=== PATIENT | male | born 1960 | race Caucasian/White ===

== ENCOUNTER 2019-10-06 11:55 | Emergency (ER) | payer OTHER ==
--- NOTE | 2019-10-06 12:03 | EDM.PDOC ---
ED HPI GENERAL MEDICAL PROBLEM - General Chief Complaint: Trauma Stated Complaint: FELL, HURT RIGHTSIDE RIB Time Seen by Provider: 10/06/19 12:01 Source of Information: Reports: Patient - History of Present Illness INITIAL COMMENTS - FREE TEXT/NARRATIVE: HISTORY AND PHYSICAL: History of present illness: [Had fall on ice yesterday to his right side no head injury or loss of consciousness complains of right shoulder rib and hip pain today 5 out of 10 nonradiating no fever nausea vomiting chills sweats no chest pain shortness breath headache dizziness palpitation no bowel or urine symptoms] Review of systems: As per history of present illness and below otherwise all systems reviewed and negative. Past medical history: As per history of present illness and as reviewed below otherwise noncontributory. Surgical history: As per history of present illness and as reviewed below otherwise noncontributory. Social history: No reported history of drug or alcohol abuse. Family history: As per history of present illness and as reviewed below otherwise noncontributory. Physical exam: HEENT: Atraumatic, normocephalic, pupils reactive, negative for conjunctival pallor or scleral icterus, mucous membranes moist, throat clear, neck supple, nontender, trachea midline. Lungs: Clear to auscultation, breath sounds equal bilaterally, chest nontender on left, exquisitly tender on lower rib margins on right. Heart: S1S2, regular, negative for clicks, rubs, or JVD. Abdomen: Soft, nondistended, nontender. Negative for masses or hepatosplenomegaly. Negative for costovertebral tenderness. Pelvis: Stable nontender. Genitourinary: Deferred. Rectal: Deferred. Extremities: Atraumatic, negative for cords or calf pain. Neurovascular unremarkable. right hip pain with movement appears to ne muscle spasm contusion , no bruise or deformity neurovascular intact right shoulder no pain with head movement , limited exam due to pain, spe cificaly passive fwd ext, neurovascularly intact, no bruise or open lesion Neuro: Awake, alert, oriented. Cranial nerves II through XII unremarkable. Cerebellum unremarkable. Motor and sensory unremarkable throughout. Exam nonfocal. Diagnostics: [pelvis w right hip right shoulder 3v chest w right ribs] Therapeutics: [norco rest ice ibu sling for comfort] Impression: [fall shoulder pain Right rib pain right/clinically could represent non displaced fx right hip pain ] Definitive disposition and diagnosis as appropriate pending reevaluation and review of above. Right Generalized Pain Score (Numeric/FACES): 8 - Related Data Allergies Allergy/AdvReac Type Severity Reaction Status Date / Time No Known Allergies Allergy Verified 10/06/19 12:26 Home Meds: Home Meds Budesonide/Formoterol Fumarate [Symbicort 160-4.5 Mcg Inhaler] 6 gm IH ASDIRECTED 10/06/19 [History] Clopidogrel [Plavix] 75 mg PO ASDIRECTED 10/06/19 [History] Dicyclomine HCl [Bentyl] 10 mg PO ASDIRECTED 10/06/19 [History] Esomeprazole Magnesium [Nexium] 40 mg PO ASDIRECTED 10/06/19 [History] Fenofibrate Nanocrystallized [Fenofibrate] 145 mg PO ASDIRECTED 10/06/19 [ History] Hydrocodone/Acetaminophen [Hydrocodon-Acetaminophen 5-325] 1 each PO ASDIRECTED 10/06/19 [History] Metoprolol Succinate/HCTZ [Metoprolol ER-Hctz 100-12.5 mg] 1 each PO ASDIRECTED 10/06/19 [History] Ondansetron [Zofran ODT] 4 mg PO Q6H PRN 10/06/19 [History] Ranolazine [Ranolazine ER] 1,000 mg PO ASDIRECTED 10/06/19 [History] Rosuvastatin [Crestor] 20 mg PO DAILY 10/06/19 [History] lisinopriL [Lisinopril] 20 mg PO ASDIRECTED 10/06/19 [History] traMADol [Ultram] 50 mg PO Q6H PRN 10/06/19 [History] Review of Systems - Review of Systems Review Of Systems: See Below ED EXAM, GENERAL - Physical Exam Exam: See Below Course - Vital Signs Last Recorded V/S: Last Vital Signs Temp 96.7 F 10/06/19 12:00 Pulse 74 10/06/19 12:00 Resp 16 10/06/19 12:00 BP 168/99 H 10/06/19 12:00 Pulse Ox 99 10/06/19 12:00 Departure - Departure Time of Disposition: 13:13 Disposition: Home, Self-Care 01 Condition: Good Clinical Impression: Chest wall pain, Right hip pain, Right shoulder pain - Discharge Information Forms: ED Department Discharge Additional Instructions: medication as prescribed return if persist or worsen follow up with primary care on return home for further restriction or work release ice 20min interval 3 times daily as needed The following information is given to patients seen in the emergency department who are being discharged to home. This information is to outline your options for follow-up care. We provide all patients seen in our emergency department with a follow-up referral. The need for follow-up, as well as the timing and circumstances, are variable depending upon the specifics of your emergency department visit. If you don't have a primary care physician on staff, we will provide you with a referral. We always advise you to contact your personal physician following an emergency department visit to inform them of the circumstance of the visit and for follow-up with them and/or the need for any referrals to a consulting specialist. The emergency department will also refer you to a specialist when appropriate. This referral assures that you have the opportunity for follow-up care with a specialist. All of these measure are taken in an effort to provide you with optimal care, which includes your follow-up. Under all circumstances we always encourage you to contact your private physician who remains a resource for coordinating your care. When calling for follow-up care, please make the office aware that this follow-up is from your recent emergency room visit. If for any reason you are refused follow-up, please contact the [facility] emergency department at and asked to speak to the emergency department charge nurse. Sepsis Event Note - Focused Exam Vital Signs: Vital Signs Temp Pulse Resp BP Pulse Ox 10/06/19 12:00 96.7 F 74 16 168/99 H 99 Date Exam was Performed: 10/06/19 Time Exam was Performed: 13:11
--- NOTE | 2019-10-06 12:46 | CR ---
Chest and right ribs: Frontal view of the chest was obtained as well as 4 views the right ribs. Comparison: No previous study. Heart size and mediastinum are normal. No acute parenchymal change is seen. No discrete fracture or other right-sided rib abnormality is seen. Impression: 1. Nothing acute is seen on frontal chest x-ray. No discrete right-sided rib abnormality is appreciated. 2. Nondisplaced rib fracture could easily be missed. Diagnostic code #1 This report was dictated in [place] Standard Time
--- NOTE | 2019-10-06 12:46 | CR ---
Pelvis and right hip: AP view of the pelvis was obtained as well as AP view of the right hip and frog-leg lateral view of the right hip. Joint space narrowing is seen within both hips, worse on the right side. Degenerative subchondral cysts are noted within the right femoral head. Sacroiliac joints are within normal limits. No acute fracture or other bony abnormality is appreciated. Impression: 1. Degenerative change within both hips, worse on the right side. 2. Nothing acute is seen. Diagnostic code #2 This report was dictated in [place] Standard Time
--- NOTE | 2019-10-06 12:49 | CR ---
Right shoulder: 3 views of the right shoulder were obtained. Comparison: No previous right shoulder study. Glenohumeral joint and acromioclavicular joint appears unremarkable. No fracture or other bony abnormality is seen. Impression: 1. No abnormality is appreciated on right shoulder study. Diagnostic code #1 This report was dictated in [place] Standard Time
== END 2019-10-06 13:20 | disposition home or self-care (01) ==
LOC: MW.ED 11:55
DX: R07.81 Pleurodynia (principal); M25.511 Pain in right shoulder; M25.551 Pain in right hip; W19.XXXA Unspecified fall, initial encounter
CPT/HCPCS: 71101-26-RT; 71101-RT; 73030-26-RT; 73030-RT; 73502-26-RT; 73502-RT; 99283; 99283-25